=== PATIENT | female | born 1985 | race African-American/Black ===

== ENCOUNTER 2024-02-13 22:28 | Emergency (ER) | payer OTHER, SELFPAY ==
--- NOTE | ~2024-02-13 | CT_ITS ---
Noncontrast CT scan of the thoracic spine CLINICAL HISTORY: Pain TECHNIQUE: Axial noncontrast imaging of the thoracic spine was performed. Sagittal and coronal reform atted images were constructed. Dose reduction technique was used on this scan by utilizing automated exposure control and iterative reconstruction technique. The dose-length product (DLP) was 1557.41 mG y-cm. FINDINGS: There is no fracture or subluxation of the thoracic spine. Vertebral bodies maintain normal height and alignment. Facet joints are intact. There is a disc osteophyte complex at T6-T7, without definite che[place] canal stenosis. No other disc bul ge or herniation identified in the thoracic spine. No distinct spinal canal stenosis or neural forami nal narrowing seen in the thoracic spine. Paravertebral soft tissues are unremarkable. Large hiatal hernia present. Impression: No acute fracture or subluxation. Large hiatal hernia. Reviewed, dictated and finalized at [facility]. Impression: No acute fracture or subluxation. Large hiatal hernia.
--- NOTE | ~2024-02-13 | CT_ITS ---
Noncontrast CT scan of the cervical spine Technique: Multiple contiguous axial [address] images of the cervical spine were obtained and rec onstructed in 2D sagittal and coronal planes on the acquisition scanner. Dose reduction technique was used on this scan by utilizing automated exposure control, adjustment of the mA and/or kV according to patient size. The dose-length product (DLP) was 662.75 mGy-cm. Clinical History: Pain Findings: No fractures or dislocations. Unremarkable visualized bony structures. The intervertebral disc spaces are preserved. No prevertebral soft tissue swelling. Impression: No fracture or subluxation of the cervical spine. Reviewed, dictated and finalized at location . Impression: No fracture or subluxation of the cervical spine.
--- NOTE | ~2024-02-13 | CT_ITS ---
Non-contrast Head CT History: Trauma Technique: Axial non-contrast imaging of the brain was performed. Dose reduction technique was used on this scan by utilizing automated exposure control and iterative reconstruction technique. The dose -length product (DLP) was 681.00 mGy-cm. Findings: There is no evidence of intracranial hemorrhage, mass lesion, or acute infarct. Brain par enchyma appears normal. The ventricles and subarachnoid spaces are normal in size. The calvarium ap pears normal. The visualized paranasal sinuses and mastoid air cells are clear. Impression: No significant abnormality seen. Reviewed, dictated and finalized at location . Impression: No significant abnormality seen.
[2024-02-13 22:31] VITALS: BP 141/94; PULSE 115; RESP 18; TEMP 36.6; O2SAT 100
[2024-02-14] MEDS: ORPHENADRINE CITRATE 100 MG TABLET.ER PO (04:59)
[2024-02-14 05:08] LABS: BEDSIDEPREGUCG Negative (Negative)
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
[2024-02-14 07:20] VITALS: BP 116/69; PULSE 76; RESP 18; O2SAT 100
== END 2024-02-14 07:22 | disposition home or self-care (01) ==
PROVIDERS: Emergency Provider Emergency Medicine
DX: S16.1XXA Strain of muscle, fascia and tendon at neck level, initial encounter (principal); K44.9 Diaphragmatic hernia without obstruction or gangrene; V49.40XA Driver injured in collision with unspecified motor vehicles in traffic accident, initial encounter
CPT/HCPCS: 70450; 72125; 72128; 81025; 99284; A9270